=== PATIENT | male | born 1960 ===

== ENCOUNTER 2017-03-05 09:25 | Emergency (ER) | payer MEDICAID, OTHER ==
[2017-03-05 09:31] VITALS: BP 115/51; RESP 20; TEMP 98.6; O2SAT 98
[2017-03-05] MEDS ORDERED: Sodium Chloride 0.9% 1,000 ML IV STA (10:17)
[2017-03-05 10:32] LABS: BASO # 0.1 K/uL (0.0-0.2); BASO % 0.6 % (0.0-2.0); EOS # 0.1 K/uL (0.0-0.7); EOS % 1.3 % (0.0-4.0); HEMATOCRIT 37.4 % (35.0-51.0); LYMPH # 2.4 K/uL (1.0-4.3); LYMPH % 26.1 % (20.0-40.0); MEAN CELL VOLUME 91.5 fl (80.0-94.0); MEAN CORPUSCULAR HEMOGLOBIN 31.8 pg (27.0-31.0); MEAN CORPUSCULAR HGB CONC 34.7 g/dL (33.0-37.0); MEAN PLATELET VOLUME 8.4 fl (7.2-11.7); MONO % 10.8 % (0.0-10.0); NEUT # 5.7 K/uL (1.8-7.0); NEUT % 61.2 % (50.0-75.0); NRBC % 0.1 % (0.0-0.0); RED CELL DISTRIBUTION WIDTH 13.4 % (11.5-14.5); WHITE BLOOD COUNT 9.4 K/uL (4.8-10.8)
[2017-03-05 10:43] LABS: ALCOHOL SERUM < 10 mg/dl (0-10); BLOOD UREA NITROGEN 20 mg/dl (9-20); CALCIUM 9.9 mg/dL (8.4-10.2); CARBON DIOXIDE 15 mmol/L (22-30); CHLORIDE 110 mmol/L (98-107); GFR AFRICAN-AMERICAN > 60; GLUCOSE,RANDOM 94 mg/dL (75-110); SODIUM 137 mmol/l (132-148)
[2017-03-05 11:08] LABS: POTASSIUM 4.7 MMOL/L (3.6-5.0)
--- NOTE | 2017-03-05 11:14 | ED PDOC ---
HPI: General Adult Time Seen by Provider: 03/05/17 10:04 Chief Complaint (Nursing): Weakness/Neurological Deficit Chief Complaint (Provider): anxiety History Per: Patient History/Exam Limitations: no limitations Additional Complaint(s): Andrea Tenorio is a 57 year old male, with a previous medical history of HIV, who presents to the ED with complaints of feeling anxious associated with fatigue, difficulty breathing and dehydration ongoing for 3 days after he reports doing crystal meth and marijuana. He denies any chest pain, depression, suicidal ideation or homicidal ideation. Patient reports last CD4 count was normal. PMD: none provided Past Medical History Reviewed: Historical Data, Nursing Documentation, Vital Signs Vital Signs: Last Vital Signs Temp 98.6 F 03/05/17 09:31 Pulse 86 03/05/17 12:52 Resp 20 03/05/17 09:31 BP 115/51 L 03/05/17 09:31 Pulse Ox 98 03/05/17 12:52 - Medical History PMH: HIV, Kidney Stones - Surgical History Surgical History: No Surg Hx - Family History Family History: States: No Known Family Hx - Immunization History Hx Tetanus Toxoid Vaccination: No Hx Influenza Vaccination: No Hx Pneumococcal Vaccination: No - Home Medications Home Medications: Ambulatory Orders Medication Instructions Recorded Acetylcysteine 1 cap PO DAILY 08/05/15 [P-Oboexj-g-Cysteine] Ascorbic Acid [Vitamin C] 1,000 mg PO DAILY 08/05/15 Atazanavir [Reyataz] 300 mg PO DAILY 08/05/15 Cholecalciferol [Vitamin D 1000 IU] 1 tab PO DAILY 08/05/15 Clonazepam [Klonopin] 2 mg PO BID 08/05/15 Emtricitabine/Tenofovir Diso 1 tab PO DAILY 08/05/15 [Truvada 200 MG-300 MG] Hydrocortisone 2.5% (Rectal) 30 applic [place] BID #1 tube 08/05/15 [Anusol-HC] Loperamide [Imodium] 2 mg PO Q4H #30 cap 08/05/15 Multivitamin [Multi-Vitamin Daily] 1 tab PO DAILY 08/05/15 Oseltamivir [Tamiflu Cap] 75 mg PO BID 08/05/15 Ritonavir [Norvir] 100 mg PO DAILY 08/05/15 Vitamin B Complex 1 cap PO DAILY 08/05/15 Zolpidem [Ambien] 10 mg PO HS 08/05/15 traMADol [Ultram] 50 mg PO Q6H PRN 08/05/15 Dicyclomine [Bentyl] 10 mg PO QID #0 cap 08/07/15 Famotidine [Pepcid] 20 mg PO BID #0 tab 08/07/15 Ketorolac Tromethamine [Toradol] 10 mg PO Q6H PRN #0 tab 08/07/15 Ondansetron [Zofran] 4 mg PO Q8H #0 tab 08/07/15 - Allergies Allergies/Adverse Reactions: Allergies Allergy/AdvReac Type Severity Reaction Status Date / Time No Known Allergies Allergy Verified 03/05/17 09:30 Review of Systems ROS Statement: Except As Marked, All Systems Reviewed And Found Negative Constitutional: Positive for: Malaise Neurological: Negative for: Weakness, Numbness Psych: Positive for: Anxiety Physical Exam - Reviewed Nursing Documentation Reviewed: Yes Vital Signs Reviewed: Yes - Physical Exam Appears: Positive for: Well, Non-toxic, No Acute Distress Head Exam: Positive for: ATRAUMATIC, NORMAL INSPECTION, NORMOCEPHALIC Skin: Positive for: Normal Color, Warm, DRY Eye Exam: Positive for: EOMI, Normal appearance, PERRL ENT: Positive for: Normal ENT Inspection Neck: Positive for: Normal, Painless ROM Cardiovascular/Chest: Positive for: Regular Rate, Rhythm Respiratory: Positive for: CNT, Normal Breath Sounds Gastrointestinal/Abdominal: Positive for: Normal Exam, Bowel Sounds, Soft Back: Positive for: Normal Inspection Extremity: Positive for: Normal ROM Neurologic/Psych: Positive for: Alert, Oriented - Laboratory Results Result Diagrams: 03/05/17 10:20 03/05/17 10:20 - ECG ECG Rhythm: Positive for: Normal QRS, Normal ST Segment, Sinus Rhythm. Negative for: ST/T Changes Rate: 86 (bpm) O2 Sat by Pulse Oximetry: 98 (RA) Pulse Ox Interpretation: Normal - Radiology X-Ray: Viewed By Me, Read By Radiologist X-Ray Interpretation: No Acute Disease - Progress Re-evaluation Time: 12:48 Condition: Re-examined, Improved Medical Decision Making Medical Decision Making: Initial Impression: anxiety, dehydration, withdrawal Initial Plan: * EKG * alcohol serum * labs * troponin I * CXR * ativan 1 mg IV * IV NS 1,000 ml at 1,000 ml/hr * reevaluation --------- Scribe Attestation: Documented by Irma Sauer, acting as a scribe for Jesse Marie MD. Provider Scribe Attestation: All medical record entries made by the Scribe were at my direction and personally dictated by me. I have reviewed the chart and agree that the record accurately reflects my personal performance of the history, physical exam, medical decision making, and the department course for this patient. I have also personally directed, reviewed, and agree with the discharge instructions and disposition Disposition - Clinical Impression Clinical Impression: Generalized muscle weakness, Dehydration, Methamphetamine abuse - Patient ED Disposition Is Patient to be Admitted: No Doctor Will See Patient In The: Office Counseled Patient/Family Regarding: Studies Performed, Diagnosis, Need For Followup - Disposition Referrals: [facility] [Outside] Disposition: Routine/Home Disposition Time: 12:50 Condition: GOOD Additional Instructions: Drink plenty of fluids. Return for worsening. Follow up with your PCP in 2-3 days. Instructions: Dehydration (ED), Methamphetamine Abuse (ED)
[2017-03-05] MEDS ORDERED: Dextrose 5%/0.45% NS 1,000 ML IV SCH (11:15)
[2017-03-05 11:20] VITALS: PULSE 86
--- NOTE | 2017-03-05 12:17 | RAD ---
PROCEDURE: CHEST RADIOGRAPH, 1 VIEW HISTORY: dyspnea COMPARISON: Chest radiographs 08/05/2015. FINDINGS: LUNGS: No acute infiltrate bilaterally. Inspiratory volume appears improved bilaterally. PLEURA: No pneumothorax or pleural fluid seen. CARDIOVASCULAR: Normal. OSSEOUS STRUCTURES: No significant abnormalities. VISUALIZED UPPER ABDOMEN: Normal. OTHER FINDINGS: None. IMPRESSION: No interval acute cardiopulmonary disease appreciated. Inspiratory volume appears improved compared 08/05/2015 radiographs.
--- NOTE | 2017-03-05 16:51 | CARD ---
APPROVED REPORT EKG Measurement Heart [id number] <Conclusion> Normal sinus rhythm Normal ECG
== END 2017-03-05 14:06 | disposition home or self-care (01) ==
LOC: H.ER 09:25
DX: F41.9 Anxiety disorder, unspecified (principal); M62.81 Muscle weakness (generalized); E86.0 Dehydration; F15.10 Other stimulant abuse, uncomplicated; Z21 Asymptomatic human immunodeficiency virus [HIV] infection status; Z87.442 Personal history of urinary calculi
CPT/HCPCS: 71010; 80048; 80320; 80324; 80345; 80346; 80349; 80353; 80358; 80361; 83992; 84484; 85025; 93005; 96360; 96361; 99285; J2060; J7040; J7042

== ENCOUNTER 2017-07-04 11:48 | Emergency (ER) | payer OTHER ==
[2017-07-04 11:56] VITALS: BP 125/76; RESP 19
--- NOTE | 2017-07-04 12:38 | ED PDOC ---
HPI: General Adult Time Seen by Provider: 07/04/17 12:20 Chief Complaint (Nursing): Flu-like Symptoms Chief Complaint (Provider): Cough, congestion, fever History Per: Patient, Other (partner) History/Exam Limitations: no limitations Onset/Duration Of Symptoms: Days, Intermittent Episodes Additional Complaint(s): Patient is a 57 y/o male with a past medical history of HIV presenting to the emergency department for a recurring cough, headache, and congestion with a new onset of fever and vomiting. The symptoms lasted initially for twelve days followed by a period of relief for three days. However, the symptoms then returned on 07/01/17, with a new onset of fever and vomiting. Also notes chest pain with coughing. He reports experiencing these symptoms while away in [facility], from which he returned on 06/29/17. Notes being evaluated by a doctor there who prescribed antibiotics (which he is unable to identify by name at this time). But he is not taking any antibiotic medication now. Denies shortness of breath, leg pain, leg swelling, or any other complaints. In regards to patients HIV status, patient reports a CD4 level of 846 ( undetectable) which was checked a few months ago. Currently takes antiviral medication. PCP: none provided. Past Medical History Reviewed: Historical Data, Nursing Documentation, Vital Signs Vital Signs: Last Vital Signs Temp 99.0 F 07/04/17 16:19 Pulse 84 07/04/17 16:19 Resp 19 07/04/17 11:51 BP 125/76 07/04/17 11:51 Pulse Ox 95 07/04/17 17:02 - Medical History PMH: HIV, Kidney Stones - Surgical History Surgical History: No Surg Hx Other surgeries: right rotator cuff repair - Family History Family History: States: No Known Family Hx - Social History Current smoker - smoking cessation education provided: No Ex-Smoker (has not smoked in the last 12 months): No Alcohol: Other - Immunization History Hx Tetanus Toxoid Vaccination: No Hx Influenza Vaccination: No Hx Pneumococcal Vaccination: No - Home Medications Home Medications: Ambulatory Orders Medication Instructions Recorded Acetylcysteine 1 cap PO DAILY 08/05/15 [H-Lwuelk-k-Cysteine] Ascorbic Acid [Vitamin C] 1,000 mg PO DAILY 08/05/15 Atazanavir [Reyataz] 300 mg PO DAILY 08/05/15 Cholecalciferol [Vitamin D 1000 IU] 1 tab PO DAILY 08/05/15 Clonazepam [Klonopin] 2 mg PO BID 08/05/15 Emtricitabine/Tenofovir Diso 1 tab PO DAILY 08/05/15 [Truvada 200 MG-300 MG] Hydrocortisone 2.5% (Rectal) 30 applic [place] BID #1 tube 08/05/15 [Anusol-HC] Loperamide [Imodium] 2 mg PO Q4H #30 cap 08/05/15 Multivitamin [Multi-Vitamin Daily] 1 tab PO DAILY 08/05/15 Oseltamivir [Tamiflu Cap] 75 mg PO BID 08/05/15 Ritonavir [Norvir] 100 mg PO DAILY 08/05/15 Vitamin B Complex 1 cap PO DAILY 08/05/15 Zolpidem [Ambien] 10 mg PO HS 08/05/15 traMADol [Ultram] 50 mg PO Q6H PRN 08/05/15 Dicyclomine [Bentyl] 10 mg PO QID #0 cap 08/07/15 Famotidine [Pepcid] 20 mg PO BID #0 tab 08/07/15 Ketorolac Tromethamine [Toradol] 10 mg PO Q6H PRN #0 tab 08/07/15 Ondansetron [Zofran] 4 mg PO Q8H #0 tab 08/07/15 - Allergies Allergies/Adverse Reactions: Allergies Allergy/AdvReac Type Severity Reaction Status Date / Time No Known Allergies Allergy Verified 07/04/17 11:51 Review of Systems ROS Statement: Except As Marked, All Systems Reviewed And Found Negative Constitutional: Positive for: Fever ENT: Positive for: Nose Congestion Cardiovascular: Positive for: Chest Pain (with coughing) Respiratory: Positive for: Cough. Negative for: Shortness of Breath Gastrointestinal: Positive for: Vomiting Musculoskeletal: Negative for: Leg Pain, Other (leg swelling) Neurological: Positive for: Headache Physical Exam - Reviewed Nursing Documentation Reviewed: Yes Vital Signs Reviewed: Yes - Physical Exam Appears: Positive for: Non-toxic, No Acute Distress Head Exam: Positive for: ATRAUMATIC, NORMAL INSPECTION, NORMOCEPHALIC Skin: Positive for: Normal Color, Warm, Dry Eye Exam: Positive for: Normal appearance. Negative for: Conjunctival injection ENT: Positive for: Normal ENT Inspection, Pharynx Is (normal), TM Is/Are (normal , no erythema). Negative for: Pharyngeal Erythema, Tonsillar Exudate Neck: Positive for: Normal, Supple (no signs of meningismus). Negative for: Painless ROM Cardiovascular/Chest: Positive for: Regular Rate, Rhythm. Negative for: Murmur Respiratory: Positive for: Normal Breath Sounds. Negative for: Accessory Muscle Use, Rales, Rhonchi, Wheezing, Respiratory Distress Gastrointestinal/Abdominal: Positive for: Soft. Negative for: Tenderness, Guarding, Rebound Back: Positive for: Normal Inspection. Negative for: L CVA Tenderness, R CVA Tenderness Extremity: Positive for: Normal ROM, Capillary Refill (normal). Negative for: Tenderness, Pedal Edema Lymphatic: Negative for: Adenopathy (lymphadenopathy) Neurologic/Psych: Positive for: Alert, rn registry II-XII, Oriented (x3). Negative for : Motor/Sensory Deficits - Laboratory Results Result Diagrams: 07/04/17 14:10 07/04/17 14:10 - ECG O2 Sat by Pulse Oximetry: 95 (RA) Pulse Ox Interpretation: Normal Medical Decision Making Medical Decision Making: Time: 12:35 Initial impression: Flu-like symptoms Initial plan: Chest X-ray Tylenol 975 mg PO Reevaluation 13:48 Chest x-ray reviewed. Findings noted as follows: FINDINGS: LUNGS: No active pulmonary disease. PLEURA: No significant pleural effusion identified. No pneumothorax apparent. CARDIOVASCULAR: Normal. OSSEOUS STRUCTURES: No significant abnormalities. VISUALIZED UPPER ABDOMEN: Normal. OTHER FINDINGS: None. IMPRESSION: No active disease. Chest x-ray results reviewed and are within normal limits. Chest x-ray results discussed with patient. Repeat temperature is 101. Patient given Motrin 600 mg by mouth. Considering history, exam, actually the patient is still febrile, will order labs, flu swab and IV fluids. 13:51 Additional orders placed: CMP CBC Ibuprofen 600 mg PO Normal Saline 1 L IV IV Insertion Blood Culture Urine Culture Influenza A B Stat Urinalysis Labs reviewed and are wnl. Flu is (-) and wbc is wnl. On re-evaluation, the patient reported significant improvement of his symptoms, patient is laying in bed comfortably in no acute distress, is afebrile, neck is supple with no signs of meningismus. Diagnostic results discussed with the patient, diagnosis of viral illness patient. Advised to rest, drink plenty of fluids, Tylenol and Motrin as needed for fever. Follow up with primary care physician in 1-2 days without fail. Return to the emergency room at any time for any new or worsening symptoms. Patient states he fully agrees with and understands discharge instructions. States that he agrees with the plan and disposition. Verbalized and repeated discharge instructions and plan. I have given the patient opportunity to ask any additional questions. ~ Scribe Attestation: Documented by Lori Valladares, acting as a scribe for LENORA Escobedo. Provider Scribe Attestation: All medical record entries made by the Scribe were at my direction and personally dictated by me. I have reviewed the chart and agree that the record accurately reflects my personal performance of the history, physical exam, medical decision making, and the department course for this patient. I have also personally directed, reviewed, and agree with the discharge instructions and disposition. Disposition - Clinical Impression Clinical Impression: Viral illness - Patient ED Disposition Is Patient to be Admitted: No Counseled Patient/Family Regarding: Studies Performed, Diagnosis, Need For Followup - Disposition Disposition: Routine/Home Disposition Time: 15:31 Condition: IMPROVED Instructions: Viral Syndrome (ED) Forms: [employer] (Syrian), [facility] ED School/Work Excuse Print Language: ANGOLAN - PA / [facility] ATTENDANT / Resident Statement /DO has reviewed & agrees with the documentation as recorded.
--- NOTE | 2017-07-04 13:50 | RAD ---
HISTORY: cough, fever COMPARISON: 03/05/2017 TECHNIQUE: Chest PA and lateral FINDINGS: LUNGS: No active pulmonary disease. PLEURA: No significant pleural effusion identified. No pneumothorax apparent. CARDIOVASCULAR: Normal. OSSEOUS STRUCTURES: No significant abnormalities. VISUALIZED UPPER ABDOMEN: Normal. OTHER FINDINGS: None. IMPRESSION: No active disease.
[2017-07-04] MEDS ORDERED: Sodium Chloride 0.9% 1,000 ML IV SCH (14:00)
[2017-07-04 14:40] LABS: BASO % 0.3 % (0.0-2.0); EOS # 0.2 K/uL (0.0-0.7); EOS % 2.5 % (0.0-4.0); HEMOGLOBIN 13.7 g/dL (12.0-18.0); LYMPH # 1.1 K/uL (1.0-4.3); MEAN CELL VOLUME 89.4 fl (80.0-94.0); MEAN CORPUSCULAR HEMOGLOBIN 30.6 pg (27.0-31.0); MEAN CORPUSCULAR HGB CONC 34.3 g/dL (33.0-37.0); MEAN PLATELET VOLUME 7.7 fl (7.2-11.7); MONO % 15.4 % (0.0-10.0); NEUT # 4.4 K/uL (1.8-7.0); NEUT % 65.8 % (50.0-75.0); NRBC % 0.1 % (0.0-0.0); RBC 4.49 Mil/uL (4.40-5.90); RED CELL DISTRIBUTION WIDTH 12.5 % (11.5-14.5); WHITE BLOOD COUNT 6.6 K/uL (4.8-10.8)
[2017-07-04 15:01] LABS: URINE BILIRUBIN NEGATIVE (NEGATIVE); URINE BLOOD MODERATE (NEGATIVE); URINE CLARITY SLIGHTY-CLOUDY (Clear); URINE COLOR YELLOW (YELLOW); URINE GLUCOSE (UA) NEG (Normal); URINE LEUKOCYTE ESTERASE NEG Leu/uL (Negative); URINE NITRATE NEGATIVE (NEGATIVE); URINE PROTEIN 30 mg/dL (NEGATIVE); URINE UROBILINOGEN 0.2-1.0 mg/dL (0.2-1.0)
[2017-07-04 15:02] LABS: ALB/GLOB RATIO 1.2 (1.0-2.1); ALBUMIN 4.1 g/dL (3.5-5.0); ALT/SGPT 67 U/L (21-72); AST/SGOT 51 U/L (17-59); BLOOD UREA NITROGEN 11 mg/dl (9-20); CALCIUM 8.8 mg/dL (8.4-10.2); GFR AFRICAN-AMERICAN > 60; GFR NON-AFRICAN AMERICAN > 60
[2017-07-04 16:23] VITALS: PULSE 84; TEMP 99
[2017-07-04 17:00] VITALS: O2SAT 95
== END 2017-07-04 16:26 | disposition home or self-care (01) ==
LOC: H.ER 11:48
DX: B34.9 Viral infection, unspecified (principal); Z87.442 Personal history of urinary calculi; Z21 Asymptomatic human immunodeficiency virus [HIV] infection status; Z87.891 Personal history of nicotine dependence
CPT/HCPCS: 71046; 80053; 81003; 85025; 87040; 87086; 87804; 96360; 96361; 99283; J7040

== ENCOUNTER 2018-10-01 18:54 | Emergency (ER) | payer OTHER ==
[2018-10-01 18:58] VITALS: RESP 16
[2018-10-01 20:37] LABS: BASO % 0.5 % (0.0-2.0); EOS # 0.4 K/uL (0.0-0.7); EOS % 5.3 % (0.0-4.0); HEMOGLOBIN 14.9 g/dL (12.0-18.0); LYMPH # 2.2 K/uL (1.0-4.3); LYMPH % 27.4 % (20.0-40.0); MEAN CORPUSCULAR HEMOGLOBIN 30.9 pg (27.0-31.0); MEAN CORPUSCULAR HGB CONC 33.1 g/dL (33.0-37.0); MEAN PLATELET VOLUME 8.1 fl (7.2-11.7); MONO # 0.7 K/uL (0.0-0.8); MONO % 8.9 % (0.0-10.0); NEUT # 4.7 K/uL (1.8-7.0); NEUT % 57.9 % (50.0-75.0); RBC 4.83 Mil/uL (4.40-5.90); RED CELL DISTRIBUTION WIDTH 12.8 % (11.5-14.5); WHITE BLOOD COUNT 8.1 K/uL (4.8-10.8)
[2018-10-01 20:41] LABS: ALB/GLOB RATIO 1.5 (1.0-2.1); ALBUMIN 5.1 g/dL (3.5-5.0); ALT/SGPT 47 U/L (21-72); AST/SGOT 43 U/L (17-59); BLOOD UREA NITROGEN 19 mg/dl (9-20); CALCIUM 9.8 mg/dL (8.4-10.2); GFR NON-AFRICAN AMERICAN > 60
--- NOTE | 2018-10-01 20:49 | ED PDOC ---
HPI: Headache Time Seen by Provider: 10/01/18 19:39 Chief Complaint (Nursing): Chest Pain Chief Complaint (Provider): Headache, Chest Pain History Per: Patient History/Exam Limitations: no limitations Onset/Duration Of Symptoms: Hrs (since 0300) Current Symptoms Are (Timing): Still Present Additional Complaint(s): 58 year old male presents to the ED for evaluation of the worst headache of his life which began after waking up at 0300 this morning. Patient states throughout the day it has been worsening associated with intermittent episodes of non- radiating worsening chest pain. Denies associated shortness of breath. Patient was sent here after his blood pressure was also found to be elevated at his dentist appointment. Otherwise denies numbness / tingling in extremities and slurred speech. PMD: Dr Oden in [facility] NIHSS Stroke Scale - Date/Time Evaluation Performed Date Performed: 10/01/18 Time Performed: 19:40 When Was NIHSS Performed: Baseline - How Severe is the Stroke Level of Consciousness: 0=Alert LOC to Questions: 0=Both comments correct LOC to commands: 0=Obeys both correctly Best Gaze: 0=Normal Visual: 0=No visual loss Facial: 0=Normal Motor Arm - Left: 0=No drift Motor Arm - Right: 0=No drift Motor Leg - Left: 0=No drift Motor Leg - Right: 0=No drift Limb Ataxia: 0=Absent Sensory: 0=Normal Best Language: 0=No aphasia Dysarthia: 0=Normal articulation Extinction & Inattention (Neglect): 0=Normal, no object Score: 0 Past Medical History Reviewed: Historical Data, Nursing Documentation, Vital Signs Vital Signs: Last Vital Signs Temp 98.0 F 10/01/18 18:58 Pulse 66 10/01/18 19:39 Resp 16 10/01/18 19:39 BP 141/95 H 10/01/18 19:39 Pulse Ox 98 10/01/18 18:58 - Medical History PMH: HIV, Kidney Stones - Surgical History Surgical History: No Surg Hx - Family History Family History: States: Unknown Family Hx - Social History Current smoker - smoking cessation education provided: No Alcohol: Other (1 glass of red wine daily) Drugs: Cannabis - Immunization History Hx Tetanus Toxoid Vaccination: No Hx Influenza Vaccination: No Hx Pneumococcal Vaccination: No - Home Medications Home Medications: Ambulatory Orders Medication Instructions Recorded Acetylcysteine 1 cap PO DAILY 08/05/15 [M-Mjaaot-t-Cysteine] Ascorbic Acid [Vitamin C] 1,000 mg PO DAILY 08/05/15 Atazanavir [Reyataz] 300 mg PO DAILY 08/05/15 Cholecalciferol [Vitamin D 1000 IU] 1 tab PO DAILY 08/05/15 Clonazepam [Klonopin] 2 mg PO BID 08/05/15 Emtricitabine/Tenofovir Diso 1 tab PO DAILY 08/05/15 [Truvada 200 MG-300 MG] Hydrocortisone 2.5% (Rectal) 30 applic [place] BID #1 tube 08/05/15 [Anusol-HC] Loperamide [Imodium] 2 mg PO Q4H #30 cap 08/05/15 Multivitamin [Multi-Vitamin Daily] 1 tab PO DAILY 08/05/15 Oseltamivir Cap [Tamiflu Cap] 75 mg PO BID 08/05/15 Ritonavir [Norvir] 100 mg PO DAILY 08/05/15 Vitamin B Complex 1 cap PO DAILY 08/05/15 Zolpidem [Ambien] 10 mg PO HS 08/05/15 traMADol [Ultram] 50 mg PO Q6H PRN 08/05/15 Dicyclomine [Bentyl] 10 mg PO QID #0 cap 08/07/15 Famotidine [Pepcid] 20 mg PO BID #0 tab 08/07/15 Ketorolac Tromethamine [Toradol] 10 mg PO Q6H PRN #0 tab 08/07/15 Ondansetron [Zofran] 4 mg PO Q8H #0 tab 08/07/15 - Allergies Allergies/Adverse Reactions: Allergies Allergy/AdvReac Type Severity Reaction Status Date / Time No Known Allergies Allergy Verified 10/01/18 18:58 Review of Systems ROS Statement: Except As Marked, All Systems Reviewed And Found Negative Constitutional: Positive for: Other (high blood pressure) Cardiovascular: Positive for: Chest Pain (intermittent, non-radiating) Respiratory: Negative for: Shortness of Breath Neurological: Positive for: Headache (worst headache of his life). Negative for : Numbness (or tingling to extremities), Change in Speech Physical Exam - Reviewed Nursing Documentation Reviewed: Yes Vital Signs Reviewed: Yes - Physical Exam Appears: Positive for: No Acute Distress Head Exam: Positive for: ATRAUMATIC, NORMAL INSPECTION, NORMOCEPHALIC Skin: Positive for: Normal Color, Warm, DRY Eye Exam: Positive for: EOMI, Normal appearance, PERRL ENT: Positive for: Normal ENT Inspection Neck: Positive for: Normal, Painless ROM, Supple Cardiovascular/Chest: Positive for: Regular Rate, Rhythm, Chest Non Tender. Negative for: Murmur Respiratory: Positive for: Normal Breath Sounds. Negative for: Accessory Muscle Use, Respiratory Distress Gastrointestinal/Abdominal: Positive for: Normal Exam, Soft. Negative for: Tenderness Back: Positive for: Normal Inspection Extremity: Positive for: Normal ROM (all extremities) Neurological/Psych: Positive for: Awake, Alert, Symmetric/Intact Strength (5/5 x4 extremities), Oriented (x3), greens cutter II-XII (intact). Negative for: Mot or/Sensory Deficits, Facial Droop - Laboratory Results Result Diagrams: 10/01/18 20:28 10/01/18 20:28 Lab Results: Total Bilirubin 0.5 mg/dl (0.2-1.3) 10/01/18 20:28 AST 43 U/L (17-59) 10/01/18 20:28 ALT 47 U/L (21-72) 10/01/18 20:28 Alkaline Phosphatase 65 U/L (38-126) 10/01/18 20:28 Total Protein 8.5 G/DL (6.3-8.2) H 10/01/18 20:28 Albumin 5.1 g/dL (3.5-5.0) H D 10/01/18 20:28 Globulin 3.4 gm/dL (2.2-3.9) 10/01/18 20:28 Albumin/Globulin Ratio 1.5 (1.0-2.1) 10/01/18 20:28 - ECG O2 Sat by Pulse Oximetry: 98 (RA) Pulse Ox Interpretation: Normal Medical Decision Making Medical Decision Making: Time: 1938 Initial Impression: workup for worsening headache (worst headache of his life); new onset chest pain, r/o cardiac etiology Initial Plan: --Aspirin 325mg PO --CT head without contrast --EKG --BNP --CMP --Trop I --CBC with differential --PT / PTT --CXR --Reevaluation CT FINDINGS: BRAIN: No acute intraparenchymal hemorrhage. No mass lesion. No CT evidence for acute territorial infarct. No midline shift or extra-axial collections. Small retrocerebellar arachnoid cyst. VENTRICLES: No hydrocephalus. ORBITS: The orbits are unremarkable. SINUSES AND MASTOIDS: Mild chronic pansinusitis is seen. The paranasal sinuses and mastoid air cells are clear. BONES: No fracture. SOFT TISSUES: Unremarkable. IMPRESSION: Small retrocerebellar arachnoid cyst. Mild chronic pansinusitis. No acute intracranial abnormality. 2112 Patient states that his headache is now more specifically left sided extending from his forehead to the back of his neck. Report his chest pain is improved. Discussed all results with patient including normal EKG, labs, head CT, and incidental finding of subarachnoid cyst. Will given pt toradol, reglan, and IV fluids for migraine treatment and reassess in one hour. 2148 Patient reports symptoms improved and would like to go home. Advised to follow up with PMD as needed. Return parameters discussed and all questions answered. ------ Scribe Attestation: Documented by Ale Tanner, acting as a scribe for Chani Pal MD. Provider Scribe Attestation: All medical record entries made by the Scribe were at my direction and personally dictated by me. I have reviewed the chart and agree that the record accurately reflects my personal performance of the history, physical exam, medical decision making, and the department course for this patient. I have also personally directed, reviewed, and agree with the discharge instructions and disposition. Disposition - Clinical Impression Clinical Impression: Atypical chest pain, Migraine - Disposition Disposition: Routine/Home Disposition Time: 21:50 Condition: IMPROVED Additional Instructions: Follow up with primary medical doctor. Increase rest and hydration while symptoms last. Return to the emergency department if symptoms worsen. Instructions: Migraine Headache (DC), Chest Pain (DC) Forms: [employer] (Faroese) Print Language: MALAY
[2018-10-01 20:50] LABS: MEAN CELL VOLUME 93.5 fl (80.0-94.0)
[2018-10-01 20:53] LABS: B-TYPE NATRIURETIC PEPTIDE 50.8 pg/ml (0-900)
[2018-10-01 20:56] LABS: PROTHROMBIN TIME 10.9 Seconds (9.8-13.1)
[2018-10-01 20:59] LABS: PARTIAL THROMBOPLASTIN TIME 35.2 Seconds (25.6-37.1)
[2018-10-01] MEDS ORDERED: Sodium Chloride 0.9% 1,000 ML IV STA (21:08)
[2018-10-01 22:18] VITALS: BP 134/89; PULSE 70; TEMP 98.1
--- NOTE | 2018-10-02 08:43 | CT ---
Date of service: 10/01/2018 PROCEDURE: CT HEAD WITHOUT CONTRAST. HISTORY: worst MONSALVE of life with HTN COMPARISON: None available. TECHNIQUE: Axial computed tomography images were obtained through the head/brain without intravenous contrast. Radiation dose: Total exam DLP = 786.13 mGy-cm. This CT exam was performed using one or more of the following dose reduction techniques: Automated exposure control, adjustment of the mA and/or kV according to patient size, and/or use of iterative reconstruction technique. FINDINGS: HEMORRHAGE: No intracranial hemorrhage. BRAIN: Blair-white matter differentiation is preserved. There is an approximately 2.3 x 2.8 x 3.4 cm CSF density retro cerebellar extra-axial mass in the left paramedian posterior fossa with mild mass effect on the underlying left cerebellar hemisphere without midline shift or herniation. There is no abnormal extra-axial fluid collection. There is no territorial infarction. The midline sagittal structures are normal. VENTRICLES: The ventricles are normal in size, shape and configuration. CALVARIUM: There is no calvarial fracture or extracranial soft tissue swelling. PARANASAL SINUSES: There is a retention cyst/polyp in the right maxillary sinus and severe mucoperiosteal thickening in the ethmoid air cells. MASTOID AIR CELLS: Predominantly clear. OTHER FINDINGS: None. IMPRESSION: 1. No acute intracranial abnormality. 2. 2.3 x 2.8 x 3.4 cm left retro cerebellar arachnoid cyst in the left paramedian posterior fossa without evidence for midline shift or herniation. 3. Chronic right frontal and ethmoid sinusitis, worse in the ethmoid sinuses. A preliminary report was provided by [employer].
--- NOTE | 2018-10-02 09:06 | RAD ---
Date of service: 10/01/2018 HISTORY: possible admission COMPARISON: 07/04/2017. FINDINGS: LUNGS: The lungs are well inflated and clear. PLEURA: No pleural effusions or pneumothorax. CARDIOVASCULAR: The heart is normal in size. No aortic atherosclerotic calcifications present. OSSEOUS STRUCTURES: Within normal limits for the patient's age. VISUALIZED UPPER ABDOMEN: Normal. OTHER FINDINGS: None. IMPRESSION: No active pulmonary disease.
--- NOTE | 2018-10-02 09:21 | CARD ---
APPROVED REPORT Date of service: 10/01/2018 EKG Measurement Heart [id number] <Conclusion> Normal sinus rhythm Normal ECG
[2018-10-03 04:47] VITALS: O2SAT 98
== END 2018-10-01 22:19 | disposition home or self-care (01) ==
LOC: H.ER 18:54
DX: R07.89 Other chest pain (principal); G43.909 Migraine, unspecified, not intractable, without status migrainosus; I10 Essential (primary) hypertension; J32.4 Chronic pansinusitis; B20 Human immunodeficiency virus [HIV] disease; G93.0 Cerebral cysts
CPT/HCPCS: 70450; 71045; 80053; 83880; 84484; 85025; 85610; 85730; 93005; 96361; 96374; 96375; 99283; J1885; J2765; J7030